=== PATIENT | female | born 1995 | race Caucasian/White ===

== ENCOUNTER 2020-05-26 14:28 | Outpatient (REF) | payer OTHER, SELFPAY | END 2020-05-26 14:29 | disposition home or self-care (01) | LOC: HO.LAB 14:28 | PROVIDERS: PCP Internal Medicine; Visit Provider Internal Medicine | DX: Z20.828 Contact with and (suspected) exposure to other viral communicable diseases (principal) | CPT/HCPCS: 87635 ==

== ENCOUNTER 2021-05-31 14:50 | Emergency (ER) | payer OTHER, SELFPAY ==
--- NOTE | 2021-05-31 14:55 | ED.OVERDOSE ---
HPI - Overdose General Stated Complaint: ?OD Time Seen by Provider: 05/31/21 14:55 Source: patient Mode of arrival: ambulatory Limitations: no limitations Related Data Home Medications Medication Instructions Recorded Confirmed vitamin with calcium 1 tab PO DAILY 07/08/20 07/08/20 no.72-iron 27 mg-folic acid 1 mg tablet Allergies Allergy/AdvReac Type Severity Reaction Status Date / Time penicillin V Allergy Intermediate hives , Verified 10/29/20 15:28 swollen up SEAFOOD Allergy Mild SWELLING Uncoded 04/16/20 16:34 From Rocephin Allergy Unknown SWELLING Uncoded 04/16/20 16:34 Rocephin Allergy Unknown swelling Uncoded 11/15/18 00:00 PMFSH Past Medical History Medical History (Updated 10/29/20 @ 15:36 by Alen Tate MD) Gallbladder adhesions Post depression Surgical History (Updated 10/29/20 @ 15:30 by LARY Nicole) History of cholecystectomy Family History Family History Mother Heart palpitations Father No problems noted. Social History Social History Alcohol intake: current Alcohol intake frequency: a few times a month Discharge Plan Discharge Prescriptions: No Action Vitamin Plus Low Iron 27 mg iron- 1 mg tablet 1 tab PO DAILY RF: 0
--- NOTE | 2021-05-31 15:11 | PC.NURSE ---
patient not in assigned bed or waiting room
--- NOTE | 2021-05-31 15:19 | PC.NURSE ---
patient called from waiting room, not present
--- NOTE | 2021-05-31 15:46 | PC.NURSE ---
TRIAGE NURSE TOLD THIS RN THAT OVERDOSE HAD SIGNED IN. PT WAS AWAKE, AMBULATORY INTO ED. PT WAS GOING TO GO TO BED 6H. TECH OUT TO GET PATIENT AND PATIENT NOT IN WAITING ROOM.
== END 2021-05-31 16:37 | disposition left against medical advice (07) ==
PROVIDERS: Emergency Provider Emergency Medicine; PCP Internal Medicine
DX: T50.901A Poisoning by unspecified drugs, medicaments and biological substances, accidental (unintentional), initial encounter (principal); Y92.9 Unspecified place or not applicable

== ENCOUNTER 2022-03-08 11:46 | Emergency (ER) | payer OTHER, SELFPAY ==
[2022-03-08 12:36] VITALS: BP 134/78; PULSE 68; RESP 18; TEMP 37.3; O2SAT 98; BMI 40.1
== END 2022-03-08 16:03 | disposition left against medical advice (07) ==
PROVIDERS: Emergency Provider Emergency Medicine; PCP Internal Medicine
DX: R53.83 Other fatigue (principal); R11.10 Vomiting, unspecified
CPT/HCPCS: 99281; 99282

== ENCOUNTER 2024-06-17 15:43 | Emergency (ER) | payer OTHER, SELFPAY | END 2024-06-17 18:40 | disposition left against medical advice (07) | PROVIDERS: Emergency Provider Emergency Medicine Emergency Medical Services; PCP Internal Medicine | DX: R50.9 Fever, unspecified (principal); R05.9 Cough, unspecified; Z53.21 Procedure and treatment not carried out due to patient leaving prior to being seen by health care provider ==

== ENCOUNTER 2024-11-06 15:16 | Outpatient (AMB) | payer OTHER, SELFPAY ==
--- NOTE | 2024-11-06 15:20 | AM.OFFWIN_ITS ---
Intake Vital Signs 11/06/24 15:23 Weight 304 lb BP 120/82 Blood Pressure Location Rt brachial Position Sitting Pulse 73 Pulse Source Pulse Oximeter Temp 97.9 F Temp Source Oral Pulse Oximetry (%) 97 Intake Visit Reasons: EP RT lower leg rash/redness/swelling/warm Intake Note: Patient here for right lower leg redness, pain and swelling that has been present for about 2 days. Patient Tobacco Use Status: Never used Tobacco Allergies penicillin V Allergy (Intermediate, Verified 11/06/24 15:24) hives , swollen up SEAFOOD Allergy (Mild, Uncoded 11/06/24 15:24) SWELLING From Rocephin Allergy (Unknown, Uncoded 11/06/24 15:24) SWELLING Rocephin Allergy (Unknown, Uncoded 11/06/24 15:24) swelling Do you need a note to return to daycare/school/sports/work: No HPI HPI Comments History of Present Illness Details History of Present Illness - The patient is a 29-year-old female pr esenting with right leg redness, pain and swelling. - Symptoms began two days ago with the a gibson feeling bruised, tender, and warm to touch. - Pain worsens with elevation and reposi tioning of the leg, with occasional shooting pain reported. - The patient notes increased swelling i n the right leg compared to the left, without prior injury. - No history of MRSA infection is report ed. - The patient has a known allergy to pen icillin, resulting in hives. Physical Exam General: Cooperative, healthy appearing, comfortable, no acute distress and well developed Orientation: Patient oriented x3 Limitations: No limitations Head: Normal to inspection Ears: Hearing grossly normal bilaterally Nose: Normal External nose present Face and sinus: Normal facial exam Eyes: Appearance normal, both eyes and all related structures Neck: Normal visual inspection and Yes full ROM Respiratory: Normal respiratory effort and able to speak in complete sentences. Skin: see below Neuro: Patient oriented x3 Extremities: right anterior lower leg just above ankle has a 3cm x 4cm area of erythema, with warmth and slight edema. [facility] Medical History (Updated 11/06/24 @ 15:32 by Candi Dent PA-C) Post depression Gallbladder adhesions Surgical History History of cholecystectomy Family History Mother Heart palpitations Father No problems noted. Social History Housing: Apartment Alcohol intake: current Alcohol intake frequency: a few times a month Patient Tobacco Use Status: Never used Tobacco e-Cigarette/Vaping Use: Never Used Second Hand Smoke Exposure: Yes service: No Current occupational status: employed Current occupational exposures/hazards: No Cognitive needs: No Hearing needs: No Vision needs: Yes Review of Systems Const All systems reviewed & are unremarkable except as noted in HPI and below Physical Exam Vital Signs: Last Vital Signs Temp 97.9 F 11/06/24 15:23 Pulse 73 11/06/24 15:23 BP 120/82 11/06/24 15:23 Pulse Ox 97 11/06/24 15:23 Assessment & Plan Assessment & Plan (1) Cellulitis: Code(s): L03.90 - Cellulitis, unspecified Qualifiers: Site of cellulitis: extremity Site of cellulitis of extremity: lower extremity Laterality: right Qualified Code(s): L03.115 - Cellulitis of right lower limb Plan: The patient is diagnosed with cellulitis and is prescribed Keflex 500 mg orally four times daily for seven days, considering her penicillin allergy and the positive response of such infections to cephalexin. She should monitor for allergic reactions and seek emergency care if symptoms such as throat tickle/swelling occur though this is unlikely with a cephalosporin. Elevating the leg above heart level is advised to decrease swelling, and if there is no improvement, come back to the Walk In and we will add Doxycycline to cover for MRSA but she has no history so I am not prescribing today. Patient was informed and verbally consented to the use of an ambient scribe for clinic note documentation during this visit. Medications: New cephalexin 500 mg PO Q6H 28 caps 0RF Coding Level of Care Code New Pt Level 3 (42129) Diagnoses Cellulitis of right lower extremity L03.115 Site of cellulitis: extremity Site of cellulitis of extremity: lower extremity Laterality: right
[2024-11-06 15:23] VITALS: BP 120/82; PULSE 73; TEMP 36.6; O2SAT 97
--- OUTSIDE RECORDS SUMMARY | 2024-11-06 17:17 | XMS_ITS | Clinical Summary ---
Author Organization [employer] [facility] ity Address [address] [place] [address] Care Team Providers Care Teacher Associate Name Role Phone Unavailable Primary Care Provider Unavailabl e Social History Tobacco Use Types Packs/Day Years Used Date Smoking Tobacco: Never Assessed Comments Unknown Sex and Gender Information Value Date Recorded Sex Assigned at Not on file Legal Sex Female 2:32 PM EST Gender Identity Not on file Sexual Orientation Not on file Plan of Treatment Health Maintenance Due Date Last Done Comments DTaP,Tdap,and Td Vaccines (1 - Tdap) 2016 Hepatitis B Vaccines (1 of 3 - 19+ 3-dose series) 2016 Cervical Cancer Screening: P ap Smear 2018 COVID-19 Vaccine ( - 2023-2 5 season) 2024 Influenza Vaccine (Season Ended) 2025 HIB Vaccines Aged Out No longer eligi ble based on patient's age to complete this topic HPV Vaccines Aged Out No longer eligi ble based on patient's age to complete this topic Hepatitis A Vaccines Aged Out No long er eligible based on patient's age to complete this topic IPV Vaccines Aged Out No longer eligi ble based on patient's age to complete this topic MMR Vaccines Aged Out No longer eligi ble based on patient's age to complete this topic Meningococcal ACWY Vaccine Aged Out N o longer eligible based on patient's age to complete this topic Meningococcal B Vaccine Aged Out No l onger eligible based on patient's age to complete this topic Pneumococcal Vaccine: Pediat rics (0 to 5 Years) and At-Risk Patients (6 to 64 Years) Aged Out No longer eligible b ased on patient's age to complete this topic RSV Immunization Patients Un adriana 20 months Aged Out No longer eligible b ased on patient's age to complete this topic Varicella Vaccines Aged Out No longer eligible based on patient's age to complete this topic
== END 2024-11-06 16:58 | disposition home or self-care (01) ==
PROVIDERS: Visit Provider Physician Assistant
DX: L03.115 Cellulitis of right lower limb (principal)

== ENCOUNTER → 2024-11-06 15:16 | Outpatient (BNVA) | payer OTHER, SELFPAY | PROVIDERS: Visit Provider Physician Assistant | DX: L03.115 Cellulitis of right lower limb (principal) | CPT/HCPCS: 99202 ==

== ENCOUNTER 2024-11-20 12:17 | Outpatient (AMB) | payer OTHER, SELFPAY ==
--- NOTE | 2024-11-20 12:52 | MHC.OFFWIV ---
Intake Vital Signs 11/20/24 12:54 Weight 304 lb BP 122/80 Blood Pressure Location Lt brachial Position Sitting Pulse 67 Pulse Source Pulse Oximeter Pulse Oximetry (%) 98 Oxygen Delivery Method Room Air Intake Visit Reasons: EP Cellulitis has not gone away Intake Note: Patient here for cellulitis that has improved but still present after being put on antibiotics. Patient Tobacco Use Status: Never used Tobacco Allergies penicillin V Allergy (Intermediate, Verified 11/20/24 12:55) hives , swollen up SEAFOOD Allergy (Mild, Uncoded 11/20/24 12:55) SWELLING From Rocephin Allergy (Unknown, Uncoded 11/20/24 12:55) SWELLING Rocephin Allergy (Unknown, Uncoded 11/20/24 12:55) swelling Do you need a note to return to daycare/school/sports/work: No HPI HPI Comments History of Present Illness Details Patient seen 11/06 due to leg cellulitis infection Was given keflex and finished She said it improved with antibiotics Now it is itching and bee tender No fever or chills No drainage She has not been using anything else Pain with pressure, 4/10. 0/10 at rest She is able to ambulate fine now unlike before [facility] Medical History (Updated 11/06/24 @ 15:32 by Candi Dent PA-C) Post depression Gallbladder adhesions Surgical History History of cholecystectomy Family History Mother Heart palpitations Father No problems noted. Social History Housing: Apartment Alcohol intake: current Alcohol intake frequency: a few times a month Patient Tobacco Use Status: Never used Tobacco e-Cigarette/Vaping Use: Never Used Second Hand Smoke Exposure: Yes service: No Current occupational status: employed Current occupational exposures/hazards: No Cognitive needs: No Hearing needs: No Vision needs: Yes Review of Systems Const Denies chills and Denies fever(s) Musc Reports deformity (R anterior peacock edema) Skin/Breast Reports dry skin (slight redness/dry/itching R anterior peacock. No warmth or drainage) Physical Exam Vital Signs: Last Vital Signs Pulse 67 11/20/24 12:54 BP 122/80 11/20/24 12:54 Pulse Ox 98 11/20/24 12:54 Oxygen Delivery Method Room Air 11/20/24 12:54 General: Non-toxic, NAD. Speaking full sentences. Skin: Warm dry throughout RLE has area of driness to R anterior distal peacock. Minimal very light red/purple discoloration to area without warmth erythema induration or fluctaunce/discharge No circumfrential edema Eye: EOMI Respiratory: No tachypnea Cardiac: No calf tenderness or pedal edema MSK: Full ROM extremities. Neurology: Alert. No aphasia or facial droop. Gait without abnormality Psych: Good mood and affect Assessment & Plan Assessment & Plan (1) Cellulitis: Code(s): L03.90 - Cellulitis, unspecified Qualifiers: Site of cellulitis: extremity Site of cellulitis of extremity: lower extremity Laterality: right Qualified Code(s): L03.115 - Cellulitis of right lower limb Plan: Patient seen and evaluated. Her cellulitis has greatly improved; she does have an area of driness/slight skin breakdown She will use mupirocin ointment to area I sent in Bactrim but she will hold at this time and she will monitor for worsening s/s discussed with her and take only if worse (she denies chance of ) We discussed leg elevation Patient gave verbal understanding and had no additional questions or concerns at time of discharge All questions answered Medications: New sulfamethoxazole-trimethoprim 800-160 mg (Bactrim DS) 1 tab PO BID 14 tabs 0RF mupirocin 2% 1 appl topical BID 22 grams 1RF Coding Level of Care Code Est Pt Level 3 (90986) Diagnoses Cellulitis of right lower extremity L03.115 Site of cellulitis: extremity Site of cellulitis of extremity: lower extremity Laterality: right
[2024-11-20 12:54] VITALS: BP 122/80; PULSE 67; O2SAT 98
--- OUTSIDE RECORDS SUMMARY | 2024-11-20 14:31 | XMS_ITS | Clinical Summary ---
Author Organization [facility] ity Address [address] [place] [address] Care Team Providers Care Wood Car Builder Name Role Phone Unavailable Primary Care Provider [...]
== END 2024-11-20 13:07 | disposition home or self-care (01) ==
PROVIDERS: Visit Provider Physician Assistant
DX: L03.115 Cellulitis of right lower limb (principal)

== ENCOUNTER → 2024-11-20 12:17 | Outpatient (BNVA) | payer OTHER, SELFPAY | PROVIDERS: Visit Provider Physician Assistant | DX: L03.115 Cellulitis of right lower limb (principal) | CPT/HCPCS: 99212 ==